=== PATIENT | female | born 1970 | race African-American/Black ===

== ENCOUNTER 2018-04-19 01:17 | Emergency (ER) | payer MEDICAID ==
[~2018-04-19] VITALS: Ht 167.6 cm; Wt 74.0 kg
[2018-04-19] MEDS ORDERED: ALBUTEROL (0.5%) 2.5MG/0.5ML NEB HHN ONE (09:30)
[2018-04-19] MEDS ORDERED: METHYLPREDNISOLONE SOD SUCC 125 MG/2 ML VIAL IV ONE (09:30)
[2018-04-19 11:42] VITALS: BP 136/69
== END 2018-04-19 12:27 | disposition home or self-care (01) ==
LOC: ER 01:17
DX: J40 Bronchitis, not specified as acute or chronic (principal); I10 Essential (primary) hypertension; B20 Human immunodeficiency virus [HIV] disease; Z87.01 Personal history of pneumonia (recurrent)
CPT/HCPCS: 71045; 94640; 96374; 99283; J2930; J7611

== ENCOUNTER 2018-11-27 14:35 | Inpatient (IN) | payer MEDICAID ==
[~2018-11-27] VITALS: Ht 167.6 cm; Wt 84.9 kg
[2018-11-27] MEDS ORDERED: NITROGLYCERIN OINT 1GM/INCH UDPKT TD ONE (15:15)
[2018-11-27] MEDS ORDERED: ASPIRIN 81MG TABLET PO ONE (15:15)
[2018-11-27] MEDS ORDERED: FUROSEMIDE 40MG/4ML VIAL IV ONE (15:15)
[2018-11-27] MEDS ORDERED: HYDRALAZINE 20MG/ML VIAL IV ONE (15:45)
[2018-11-27 16:52] LABS: BASOPHILS % 0.5 % (0.0-2.0); EOSINOPHILS % 1.9 % (0.0-5.0); HEMATOCRIT. 36.3 % (36.0-48.0); HEMOGLOBIN. 11.8 g/dL (12.0-16.0); LYMPHOCYTES % 7.4 % (20.0-50.0); MEAN CORPUSCULAR HEMOGLOBIN 27.4 pg (28.0-32.0); MEAN PLATELET VOLUME 8.7 fl (7.4-10.4); MONOCYTES % 6.4 % (2.0-8.0); NEUTROPHILS % 83.8 % (40.0-76.0); PLATELET 165 x1000/uL (130-400); RED BLOOD CELL COUNT 4.32 mill/uL (4.2-5.4); RED CELL DISTRIBUTION WIDTH 16.6 % (11.6-14.6)
[2018-11-27 16:55] LABS: CHLORIDE 109 mEq/L (98-107)
[2018-11-27 17:09] LABS: HCG SCREEN NEGATIVE
[2018-11-27 17:24] LABS: INR 1.3; PARTIAL THROMBOPLASTIN TIME 29.3 sec (23.4-31.0); PROTHROMBIN TIME 13.5 sec (9.6-11.0)
[2018-11-27 17:44] LABS: CLARITY URINE CLEAR (CLEAR); COLOR URINE YELLOW (YELLOW); KETONES URINE NEGATIVE (NEGATIVE); LEUKOCYTE ESTERASE URINE NEGATIVE (NEGATIVE); NITRITE URINE NEGATIVE (NEGATIVE); OCCULT BLOOD URINE 2+ (NEGATIVE); PROTEIN URINE NEGATIVE (NEGATIVE); SPECIFIC GRAVITY URINE 1.006 (1.005-1.030); UROBILINOGEN URINE 0.2 E.U./dL (0.2-1.0)
[2018-11-27] MEDS ORDERED: IOHEXOL-350 100 ML BOTTLE ONE (23:24)
[2018-11-28 01:00] VITALS: BP 129/87
[2018-11-28 04:00] VITALS: BP 112/54
[2018-11-28] MEDS ORDERED: ONDANSETRON HCL 4MG/2ML INJ IV PRN (05:15)
[2018-11-28] MEDS ORDERED: CLONIDINE 0.1MG TABLET PO PRN (05:15)
[2018-11-28] MEDS ORDERED: HYDROCODONE/ACETAMINOPHEN 5/325MG TABLET PO PRN (05:15)
[2018-11-28 07:48] LABS: *AMPHETAMINES SCREEN URINE NEGATIVE (NEGATIVE); *BARBITURATES SCREEN URINE NEGATIVE (NEGATIVE); *BENZODIAZEPINES SCREEN URINE NEGATIVE (NEGATIVE); *COCAINE SCREEN URINE NEGATIVE (NEGATIVE); METHADONE URINE SCREEN NEGATIVE (NEGATIVE)
[2018-11-28 07:49] LABS: CANNABINOID URINE SCREEN NEGATIVE (NEGATIVE); PHENCYCLIDINE URINE SCREEN NEGATIVE (NEGATIVE)
[2018-11-28 08:00] VITALS: BP 113/75
[2018-11-28 08:12] LABS: OPIATES URINE SCREEN PRESUMTIVE POSITIVE (NEGATIVE)
[2018-11-28] MEDS: FUROSEMIDE 40MG/4ML VIAL IVP SCH ×2 (10:12→17:59)
[2018-11-28 10:41] LABS: BASOPHILS % 0.7 % (0.0-2.0); EOSINOPHILS % 1.8 % (0.0-5.0); HEMATOCRIT. 36.2 % (36.0-48.0); HEMOGLOBIN. 11.6 g/dL (12.0-16.0); LYMPHOCYTES % 15.9 % (20.0-50.0); MEAN CORPUSCULAR HEMOGLOBIN 26.9 pg (28.0-32.0); MEAN CORPUSCULAR VOLUME 84.1 fL (81.0-99.0); MEAN PLATELET VOLUME 8.7 fl (7.4-10.4); MONOCYTES % 13.5 % (2.0-8.0); NEUTROPHILS % 68.1 % (40.0-76.0); PLATELET 160 x1000/uL (130-400); RED CELL DISTRIBUTION WIDTH 17.4 % (11.6-14.6)
[2018-11-28 10:44] LABS: CHLORIDE 106 mEq/L (98-107)
[2018-11-28 10:57] LABS: LDL CHOLESTEROL 43 mg/dL (5-100)
[2018-11-28 10:59] LABS: HDL CHOLESTEROL 17 mg/dL (40-59)
[2018-11-28 12:00] VITALS: BP 113/79
[2018-11-28 16:00] VITALS: BP 121/80
[2018-11-28] MEDS ORDERED: MAGNESIUM 2 G PREMIX 50 ML IV NR (18:00)
[2018-11-28 20:00] VITALS: BP 124/70
[2018-11-28] MEDS: CARVEDILOL 3.125 MG TABLET PO SCH (22:15)
[2018-11-28] MEDS: GUAIFENESIN 200MG/10ML SUGAR FREE UDC PO PRN (23:45)
[2018-11-28] MEDS: ACETAMINOPHEN 325MG TABLET PO PRN (23:48)
[2018-11-29] VITALS: BP 116/82
[2018-11-29 03:38] VITALS: BP 113/77
[2018-11-29 07:15] LABS: CHLORIDE 104 mEq/L (98-107)
[2018-11-29 07:27] LABS: HEMATOCRIT. 33.5 % (36.0-48.0); HEMOGLOBIN. 10.9 g/dL (12.0-16.0); MEAN CORPUSCULAR HEMOGLOBIN 27.6 pg (28.0-32.0); MEAN CORPUSCULAR VOLUME 84.2 fL (81.0-99.0); MEAN PLATELET VOLUME 8.6 fl (7.4-10.4); PLATELET 144 x1000/uL (130-400); RED BLOOD CELL COUNT 3.97 mill/uL (4.2-5.4); RED CELL DISTRIBUTION WIDTH 16.9 % (11.6-14.6)
[2018-11-29 07:37] LABS: HEPATITIS B SURFACE ANTIGEN NEGATIVE
[2018-11-29 08:00] VITALS: BP 125/84
[2018-11-29 08:07] LABS: HEPATITIS A AB IGM NEGATIVE (NEGATIVE)
[2018-11-29] MEDS ORDERED: ENOXAPARIN 40MG/0.4ML SYR SUBCUT SCH (09:00)
[2018-11-29] MEDS: LISINOPRIL 2.5MG TABLET PO SCH (09:00)
[2018-11-29] MEDS: CARVEDILOL 3.125 MG TABLET PO SCH ×2 (09:00→21:23)
[2018-11-29] MEDS: FUROSEMIDE 40MG/4ML VIAL IVP SCH ×2 (09:58→18:54)
[2018-11-29 11:45] LABS: PLATELET ESTIMATE NORMAL
[2018-11-29 12:00] VITALS: BP 105/65
[2018-11-29] MEDS: ENOXAPARIN 40MG/0.4ML SYR SUBCUT SCH (13:00)
[2018-11-29 16:00] VITALS: BP 134/86
[2018-11-29 20:00] VITALS: BP 121/63
[2018-11-29] MEDS: DOCUSATE SODIUM 250MG CAPSULE PO PRN (21:24)
[2018-11-29] MEDS: ACETAMINOPHEN 325MG TABLET PO PRN (21:24)
[2018-11-29] MEDS: GUAIFENESIN 200MG/10ML SUGAR FREE UDC PO PRN (21:28)
[2018-11-29] MEDS ORDERED: CARV6.2548 PO (22:07)
[2018-11-29] MEDS ORDERED: FAMO40TA7 PO (22:07)
[2018-11-29] MEDS ORDERED: AMOX500T2 PO (22:07)
[2018-11-29] MEDS ORDERED: MULT-1116 PO (22:07)
[2018-11-29] MEDS ORDERED: POTA10CA42 PO (22:07)
[2018-11-29] MEDS ORDERED: ASPI-1158 PO (22:07)
[2018-11-30] VITALS: BP 110/69
[2018-11-30 04:00] VITALS: BP 119/81
[2018-11-30 06:44] LABS: HEMATOCRIT. 34.4 % (36.0-48.0); HEMOGLOBIN. 11.1 g/dL (12.0-16.0); MEAN CORPUSCULAR HEMOGLOBIN 27.1 pg (28.0-32.0); MEAN PLATELET VOLUME 8.9 fl (7.4-10.4); PLATELET 159 x1000/uL (130-400); RED BLOOD CELL COUNT 4.09 mill/uL (4.2-5.4)
[2018-11-30 07:53] LABS: CHLORIDE 100 mEq/L (98-107)
[2018-11-30 08:00] VITALS: BP 113/77
[2018-11-30] MEDS: LISINOPRIL 2.5MG TABLET PO SCH ×2 (09:00→14:34)
[2018-11-30] MEDS: DOCUSATE SODIUM 250MG CAPSULE PO PRN (09:29)
[2018-11-30] MEDS: CARVEDILOL 3.125 MG TABLET PO SCH ×2 (09:29→21:20)
[2018-11-30] MEDS: FUROSEMIDE 40MG/4ML VIAL IVP SCH ×2 (09:29→18:41)
[2018-11-30] MEDS: ENOXAPARIN 40MG/0.4ML SYR SUBCUT SCH (09:31)
[2018-11-30 12:00] VITALS: BP 110/70
[2018-11-30 14:10] LABS: PLATELET ESTIMATE NORMAL
[2018-11-30] MEDS: GUAIFENESIN 200MG/10ML SUGAR FREE UDC PO PRN ×2 (14:36→21:26)
[2018-11-30] MEDS ORDERED: MAGNESIUM 1 G PREMIX 100 ML IV SCH (15:00)
[2018-11-30 16:00] VITALS: BP 118/69
[2018-11-30 20:00] VITALS: BP 110/65
[2018-11-30] MEDS: ACETAMINOPHEN 325MG TABLET PO PRN (21:21)
[2018-12-01] VITALS: BP 109/71
[2018-12-01 04:00] VITALS: BP 101/55
[2018-12-01 07:14] LABS: HEMATOCRIT. 35.5 % (36.0-48.0); HEMOGLOBIN. 11.6 g/dL (12.0-16.0); MEAN CORPUSCULAR HEMOGLOBIN 27.1 pg (28.0-32.0); MEAN CORPUSCULAR VOLUME 83.1 fL (81.0-99.0); MEAN PLATELET VOLUME 8.7 fl (7.4-10.4); PLATELET 173 x1000/uL (130-400); RED BLOOD CELL COUNT 4.26 mill/uL (4.2-5.4); RED CELL DISTRIBUTION WIDTH 17.1 % (11.6-14.6)
[2018-12-01 08:00] VITALS: BP 103/68
[2018-12-01] MEDS: LISINOPRIL 2.5MG TABLET PO SCH (09:00)
[2018-12-01] MEDS: CARVEDILOL 3.125 MG TABLET PO SCH (09:00)
[2018-12-01] MEDS: FUROSEMIDE 40MG/4ML VIAL IVP SCH (09:15)
[2018-12-01] MEDS: ENOXAPARIN 40MG/0.4ML SYR SUBCUT SCH (09:16)
[2018-12-01 09:35] LABS: CHLORIDE 101 mEq/L (98-107)
[2018-12-01 09:36] LABS: PLATELET ESTIMATE NORMAL
[2018-12-01 12:00] VITALS: BP 108/69
[2018-12-01] MEDS ORDERED: FURO40TA5 MT (12:38)
[2018-12-01] MEDS ORDERED: LISI2.5T47 MT (12:38)
[2018-12-01 18:00] VITALS: BP 123/81
== END 2018-12-01 19:00 | disposition home or self-care (01) | DRG 194 ==
LOC: ER 14:35 → 6WST 18:45 → ENRESERV 22:55
PROVIDERS: ADMIT Internal Medicine; ATTEND Internal Medicine
DX: I11.0 Hypertensive heart disease with heart failure (principal); D72.1 Eosinophilia; E83.42 Hypomagnesemia; E88.09 Other disorders of plasma-protein metabolism, not elsewhere classified; D72.0 Genetic anomalies of leukocytes; R18.8 Other ascites; I50.43 Acute on chronic combined systolic (congestive) and diastolic (congestive) heart failure; I07.1 Rheumatic tricuspid insufficiency; K76.9 Liver disease, unspecified; D63.8 Anemia in other chronic diseases classified elsewhere; I25.2 Old myocardial infarction; Z82.49 Family history of ischemic heart disease and other diseases of the circulatory system; R74.0 Nonspecific elevation of levels of transaminase and lactic acid dehydrogenase [LDH]; I34.0 Nonrheumatic mitral (valve) insufficiency
CPT/HCPCS: 36415; 71045; 71275; 74176; 76700; 80048; 80061; 80076; 80305; 81003; 82105; 82248; 83735; 83880; 84443; 84484; 84703; 85379; 86705; 86709; 86803; 87077; 87340; 87804; 93005; 93306; 93970; 99285; J0360; J1650; J1940; J3475; Q9967

== ENCOUNTER 2019-01-16 22:25 | Inpatient (IN) | payer MEDICAID ==
[~2019-01-16] VITALS: Ht 167.6 cm; Wt 77.6 kg
[~2019-01-16 22:25] MED LIST: ASPI-1158 PO; CARV6.2548 PO; FAMO40TA7 PO; FURO40TA5 MT; LISI2.5T47 MT; MULT-1116 PO; POTA10CA42 PO
[2019-01-17] VITALS (7 sets, daily range): BP systolic 91–134; BP diastolic 44–77
[2019-01-17 06:18] LABS: BASOPHILS % 0.9 % (0.0-2.0); EOSINOPHILS % 9.1 % (0.0-5.0); HEMATOCRIT. 42.5 % (36.0-48.0); HEMOGLOBIN. 13.7 g/dL (12.0-16.0); LYMPHOCYTES % 22.8 % (20.0-50.0); MEAN CORPUSCULAR HEMOGLOBIN 26.9 pg (28.0-32.0); MEAN CORPUSCULAR VOLUME 83.7 fL (81.0-99.0); MEAN PLATELET VOLUME 8.9 fl (7.4-10.4); MONOCYTES % 12.5 % (2.0-8.0); NEUTROPHILS % 54.7 % (40.0-76.0); PLATELET 247 x1000/uL (130-400); RED BLOOD CELL COUNT 5.08 mill/uL (4.2-5.4); RED CELL DISTRIBUTION WIDTH 17.8 % (11.6-14.6)
[2019-01-17 06:21] LABS: CHLORIDE 102 mEq/L (98-107)
[2019-01-17 06:22] LABS: INR 1.3; PROTHROMBIN TIME 13.7 sec (9.6-11.0)
[2019-01-17] MEDS: HEPARIN 5000 UNITS/ML VIAL SUBCUT SCH ×2 (08:10→21:20)
[2019-01-17] MEDS: MULTIVITAMINS,THER W-MINERALS TABLET PO SCH (08:15)
[2019-01-17] MEDS: FUROSEMIDE 40MG/4ML VIAL IVP SCH (08:15)
[2019-01-17] MEDS: LISINOPRIL 2.5MG TABLET PO SCH (08:16)
[2019-01-17] MEDS: CARVEDILOL 6.25 MG TABLET PO SCH ×2 (08:16→21:20)
[2019-01-17] MEDS: SPIRONOLACTONE 25MG TABLET PO SCH (08:17)
[2019-01-17] MEDS: POTASSIUM CHLORIDE 10MEQ TABLET SR PO SCH (08:17)
[2019-01-17] MEDS: OMEPRAZOLE 20MG CAPSULE EXTENDED RELEASE PO SCH (15:03)
[2019-01-17] MEDS ORDERED: INFLUENZA VIRUS VACCINE(AFLURIA) 0.5ML SYR IM ONE (19:00)
[2019-01-17] MEDS ORDERED: FAMOTIDINE 20MG TABLET PO SCH (21:00)
[2019-01-17] MEDS: ATORVASTATIN CALCIUM 20MG TABLET PO SCH (21:19)
[2019-01-17] MEDS: HYDROCODONE/ACETAMINOPHEN 5/325MG TABLET PO PRN (21:22)
[2019-01-18] VITALS: BP 110/61
[2019-01-18 04:00] VITALS: BP 117/65
[2019-01-18] MEDS: OMEPRAZOLE 20MG CAPSULE EXTENDED RELEASE PO SCH (06:22)
[2019-01-18 08:00] VITALS: BP 102/60
[2019-01-18] MEDS: LISINOPRIL 2.5MG TABLET PO SCH (09:00)
[2019-01-18] MEDS: MULTIVITAMINS,THER W-MINERALS TABLET PO SCH (09:51)
[2019-01-18] MEDS: POTASSIUM CHLORIDE 10MEQ TABLET SR PO SCH (09:51)
[2019-01-18] MEDS: HEPARIN 5000 UNITS/ML VIAL SUBCUT SCH ×2 (09:52→20:15)
[2019-01-18] MEDS: FUROSEMIDE 40MG/4ML VIAL IVP SCH (09:52)
[2019-01-18 10:07] LABS: BASOPHILS % 0.9 % (0.0-2.0); EOSINOPHILS % 9.9 % (0.0-5.0); HEMATOCRIT. 45.4 % (36.0-48.0); HEMOGLOBIN. 14.5 g/dL (12.0-16.0); LYMPHOCYTES % 22.6 % (20.0-50.0); MEAN CORPUSCULAR HEMOGLOBIN 26.9 pg (28.0-32.0); MEAN PLATELET VOLUME 8.8 fl (7.4-10.4); MONOCYTES % 8.6 % (2.0-8.0); PLATELET 264 x1000/uL (130-400); RED CELL DISTRIBUTION WIDTH 17.9 % (11.6-14.6)
[2019-01-18 10:13] LABS: CHLORIDE 102 mEq/L (98-107)
[2019-01-18] MEDS: SPIRONOLACTONE 25MG TABLET PO SCH (10:29)
[2019-01-18 12:00] VITALS: BP 115/76
[2019-01-18] MEDS: CARVEDILOL 6.25 MG TABLET PO SCH (13:44)
[2019-01-18 16:00] VITALS: BP 104/64
[2019-01-18 20:00] VITALS: BP 107/70
[2019-01-18] MEDS: ATORVASTATIN CALCIUM 20MG TABLET PO SCH (20:15)
[2019-01-18] MEDS: CARVEDILOL 12.5MG TABLET PO SCH (20:16)
[2019-01-18] MEDS: HYDROCODONE/ACETAMINOPHEN 5/325MG TABLET PO PRN (20:16)
[2019-01-18] MEDS: FAMOTIDINE 20MG TABLET PO SCH (20:16)
[2019-01-18] MEDS ORDERED: BICT1TAB PO (22:00)
[2019-01-18] MEDS ORDERED: LISI-604 PO (22:00)
[2019-01-18] MEDS ORDERED: ALBU2.5V13 NEB (22:02)
[2019-01-19] VITALS: BP 98/56
[2019-01-19 04:00] VITALS: BP 103/72
[2019-01-19] MEDS: FAMOTIDINE 20MG TABLET PO SCH ×2 (06:26→21:00)
[2019-01-19 07:08] LABS: BASOPHILS % 0.9 % (0.0-2.0); EOSINOPHILS % 10.7 % (0.0-5.0); HEMATOCRIT. 41.8 % (36.0-48.0); HEMOGLOBIN. 13.5 g/dL (12.0-16.0); LYMPHOCYTES % 25.8 % (20.0-50.0); MEAN CORPUSCULAR VOLUME 83.5 fL (81.0-99.0); MEAN PLATELET VOLUME 8.7 fl (7.4-10.4); MONOCYTES % 12.2 % (2.0-8.0); NEUTROPHILS % 50.4 % (40.0-76.0); PLATELET 232 x1000/uL (130-400); RED BLOOD CELL COUNT 5.01 mill/uL (4.2-5.4); RED CELL DISTRIBUTION WIDTH 17.9 % (11.6-14.6)
[2019-01-19 08:02] VITALS: BP 112/70
[2019-01-19 08:04] LABS: CHLORIDE 104 mEq/L (98-107)
[2019-01-19] MEDS: HEPARIN 5000 UNITS/ML VIAL SUBCUT SCH ×2 (08:56→20:59)
[2019-01-19] MEDS: SPIRONOLACTONE 25MG TABLET PO SCH (08:56)
[2019-01-19] MEDS: POTASSIUM CHLORIDE 10MEQ TABLET SR PO SCH (08:56)
[2019-01-19] MEDS: MULTIVITAMINS,THER W-MINERALS TABLET PO SCH (08:56)
[2019-01-19] MEDS: FUROSEMIDE 40MG/4ML VIAL IVP SCH (08:57)
[2019-01-19] MEDS: CARVEDILOL 12.5MG TABLET PO SCH ×2 (08:57→21:00)
[2019-01-19] MEDS: LISINOPRIL 5MG TABLET PO SCH (09:27)
[2019-01-19 12:30] VITALS: BP 91/55
[2019-01-19] MEDS: BIKTARVY PO SCH (13:41)
[2019-01-19 16:30] VITALS: BP 95/50
[2019-01-19 20:00] VITALS: BP 94/51
[2019-01-19] MEDS: ATORVASTATIN CALCIUM 20MG TABLET PO SCH (21:00)
[2019-01-20] VITALS (8 sets, daily range): BP systolic 92–152; BP diastolic 57–76
[2019-01-20 06:15] LABS: BASOPHILS % 0.9 % (0.0-2.0); EOSINOPHILS % 10.8 % (0.0-5.0); HEMATOCRIT. 41.3 % (36.0-48.0); HEMOGLOBIN. 13.2 g/dL (12.0-16.0); LYMPHOCYTES % 28.8 % (20.0-50.0); MEAN CORPUSCULAR HEMOGLOBIN 26.7 pg (28.0-32.0); MEAN CORPUSCULAR VOLUME 83.6 fL (81.0-99.0); MEAN PLATELET VOLUME 8.7 fl (7.4-10.4); MONOCYTES % 12.4 % (2.0-8.0); NEUTROPHILS % 47.1 % (40.0-76.0); PLATELET 217 x1000/uL (130-400); RED BLOOD CELL COUNT 4.94 mill/uL (4.2-5.4)
[2019-01-20 06:30] LABS: CHLORIDE 103 mEq/L (98-107)
[2019-01-20] MEDS: FAMOTIDINE 20MG TABLET PO SCH ×2 (06:32→20:56)
[2019-01-20] MEDS: CARVEDILOL 12.5MG TABLET PO SCH ×2 (10:19→20:56)
[2019-01-20] MEDS: FUROSEMIDE 40MG/4ML VIAL IVP SCH (10:19)
[2019-01-20] MEDS: POTASSIUM CHLORIDE 10MEQ TABLET SR PO SCH (10:19)
[2019-01-20] MEDS: SPIRONOLACTONE 25MG TABLET PO SCH (10:20)
[2019-01-20] MEDS: MULTIVITAMINS,THER W-MINERALS TABLET PO SCH (10:20)
[2019-01-20] MEDS: HEPARIN 5000 UNITS/ML VIAL SUBCUT SCH ×2 (10:26→20:56)
[2019-01-20] MEDS: BIKTARVY PO SCH (10:31)
[2019-01-20] MEDS ORDERED: ISOS60TA4 PO (11:20)
[2019-01-20] MEDS ORDERED: IRBE300T17 MT (11:20)
[2019-01-20] MEDS: LISINOPRIL 5MG TABLET PO SCH (11:59)
[2019-01-20] MEDS: ATORVASTATIN CALCIUM 20MG TABLET PO SCH (20:56)
[2019-01-20] MEDS ORDERED: AZITHROMYCIN 600 MG TABLET PO SCH (21:00)
[2019-01-21] VITALS: BP 108/57
[2019-01-21] MEDS: HYDROCODONE/ACETAMINOPHEN 5/325MG TABLET PO PRN (01:39)
[2019-01-21 04:00] VITALS: BP 102/64
[2019-01-21] MEDS: FAMOTIDINE 20MG TABLET PO SCH ×2 (06:20→21:27)
[2019-01-21 08:00] VITALS: BP 108/72
[2019-01-21] MEDS: POTASSIUM CHLORIDE 10MEQ TABLET SR PO SCH (08:14)
[2019-01-21] MEDS: SULFAMETHOXAZOLE/TRIMETHOPRIM 800/160MG TABLET PO SCH (08:14)
[2019-01-21] MEDS: MULTIVITAMINS,THER W-MINERALS TABLET PO SCH (08:14)
[2019-01-21] MEDS: SPIRONOLACTONE 25MG TABLET PO SCH (08:15)
[2019-01-21] MEDS: LISINOPRIL 5MG TABLET PO SCH (08:15)
[2019-01-21] MEDS: FUROSEMIDE 40MG/4ML VIAL IVP SCH (08:15)
[2019-01-21] MEDS: CARVEDILOL 12.5MG TABLET PO SCH ×2 (08:15→21:00)
[2019-01-21] MEDS: BIKTARVY PO SCH (08:17)
[2019-01-21] MEDS: HEPARIN 5000 UNITS/ML VIAL SUBCUT SCH ×2 (09:00→21:28)
[2019-01-21] MEDS ORDERED: MAGNESIUM/ALUMINUM HYDROXIDE/SIMETHICONE 30ML UDC PO PRN (10:45)
[2019-01-21 11:06] LABS: CHLORIDE 101 mEq/L (98-107)
[2019-01-21 11:07] LABS: EOSINOPHILS % 13.8 % (0.0-5.0); HEMATOCRIT. 42.2 % (36.0-48.0); HEMOGLOBIN. 13.6 g/dL (12.0-16.0); LYMPHOCYTES % 30.3 % (20.0-50.0); MEAN CORPUSCULAR VOLUME 83.6 fL (81.0-99.0); MEAN PLATELET VOLUME 8.8 fl (7.4-10.4); MONOCYTES % 14.9 % (2.0-8.0); PLATELET 212 x1000/uL (130-400); RED BLOOD CELL COUNT 5.05 mill/uL (4.2-5.4); RED CELL DISTRIBUTION WIDTH 17.6 % (11.6-14.6)
[2019-01-21 11:38] VITALS: BP 113/76
[2019-01-21 16:00] VITALS: BP 106/61
[2019-01-21 20:00] VITALS: BP 109/67
[2019-01-21] MEDS: ATORVASTATIN CALCIUM 20MG TABLET PO SCH (21:26)
[2019-01-22] VITALS: BP 108/64
[2019-01-22 04:00] VITALS: BP 102/65
[2019-01-22] MEDS: FAMOTIDINE 20MG TABLET PO SCH ×2 (06:44→21:46)
[2019-01-22 07:41] LABS: HEMATOCRIT. 38.4 % (36.0-48.0); HEMOGLOBIN. 12.7 g/dL (12.0-16.0); MEAN CORPUSCULAR HEMOGLOBIN 27.3 pg (28.0-32.0); MEAN CORPUSCULAR VOLUME 82.6 fL (81.0-99.0); MEAN PLATELET VOLUME 8.8 fl (7.4-10.4); PLATELET 188 x1000/uL (130-400); RED BLOOD CELL COUNT 4.65 mill/uL (4.2-5.4); RED CELL DISTRIBUTION WIDTH 17.3 % (11.6-14.6)
[2019-01-22 08:21] LABS: CHLORIDE 107 mEq/L (98-107)
[2019-01-22 08:37] VITALS: BP 106/61
[2019-01-22] MEDS: SULFAMETHOXAZOLE/TRIMETHOPRIM 800/160MG TABLET PO SCH (09:00)
[2019-01-22] MEDS: FUROSEMIDE 40MG/4ML VIAL IVP SCH (09:00)
[2019-01-22] MEDS: POTASSIUM CHLORIDE 10MEQ TABLET SR PO SCH (09:00)
[2019-01-22] MEDS: SPIRONOLACTONE 25MG TABLET PO SCH (09:00)
[2019-01-22] MEDS: BIKTARVY PO SCH (09:00)
[2019-01-22] MEDS: LISINOPRIL 5MG TABLET PO SCH (09:00)
[2019-01-22] MEDS: CARVEDILOL 12.5MG TABLET PO SCH ×2 (09:00→21:51)
[2019-01-22] MEDS: MULTIVITAMINS,THER W-MINERALS TABLET PO SCH (09:00)
[2019-01-22] MEDS ORDERED: TETRACAINE/BENZOCAINE/BUTAMBEN 20 GM SPRAY MM ONE (09:39)
[2019-01-22] MEDS ORDERED: LIDOCAINE HCL 2% JELLY 5ML ONE (09:39)
[2019-01-22] MEDS ORDERED: MIDAZOLAM HCL 2 MG/2 ML VIAL ONE (09:51)
[2019-01-22] MEDS ORDERED: FENTANYL CITRATE/PF 50MCG/ML 2ML VIAL ONE (09:51)
[2019-01-22 11:10] LABS: PLATELET ESTIMATE NORMAL
[2019-01-22] MEDS ORDERED: NITROGLYCERIN 50MCG/ML 10ML VIAL (CATH LAB) IV SCH (11:30)
[2019-01-22] MEDS ORDERED: NITROGLYCERIN SPRAY/4.9GM CAN TL SCH (11:30)
[2019-01-22 12:00] VITALS: BP 119/76
[2019-01-22] MEDS ORDERED: METOPROLOL TARTRATE 5MG/5ML VIAL IV NR (12:00)
[2019-01-22] MEDS ORDERED: METOPROLOL TARTRATE 5MG/5ML VIAL IV ONE (13:14)
[2019-01-22] MEDS ORDERED: IOHEXOL-350 100 ML BOTTLE ONE (15:21)
[2019-01-22 16:11] VITALS: BP 118/88
[2019-01-22 20:30] VITALS: BP 111/72
[2019-01-22] MEDS: ATORVASTATIN CALCIUM 20MG TABLET PO SCH (21:46)
[2019-01-22] MEDS: HEPARIN 5000 UNITS/ML VIAL SUBCUT SCH (22:22)
[2019-01-22] MEDS: HYDROCODONE/ACETAMINOPHEN 5/325MG TABLET PO PRN (22:25)
[2019-01-23] VITALS (7 sets, daily range): BP systolic 80–110; BP diastolic 50–72
[2019-01-23] MEDS ORDERED: CHLORHEXIDINE GLUCONATE 4% EXTERNAL USE TOP SCH ×2 (05:30→21:00)
[2019-01-23 07:53] LABS: % CD 3 POS. LYMPHOCYTES 58.5 % (57.5-86.2); % CD 4 POS. LYMPHOCYTES 13.8 % (30.8-58.5); ABSOLUTE CD 3 936 /uL (622-2402); ABSOLUTE CD 4 HELPER 221 /uL (359-1519); ABSOLUTE CD 8 SUPPRESSOR 704 /uL (109-897); ABSOLUTE EOSINOPHILS 0.6 x10E3/uL (0.0-0.4); ABSOLUTE LYMPHOCYTES 1.6 x10E3/uL (0.7-3.1); ABSOLUTE MONOCYTES 0.8 x10E3/uL (0.1-0.9); ABSOLUTE NEUTROPHILS 3.8 x10E3/uL (1.4-7.0); BASOPHILS 0 % (Not Estab.); CD4/CD8 RATIO 0.31 (0.92-3.72); HEMOGLOBIN 14.1 g/dL (11.1-15.9); IMMATURE GRANULOCYTES 0 % (Not Estab.); LYMPHOCYTES 23 % (Not Estab.); MEAN CORPUSCULAR HEMOGLOBIN 26.4 pg (26.6-33.0); MEAN CORPUSCULAR VOLUME 88 fL (79-97); MONOCYTES 12 % (Not Estab.); NEUTROPHILS 56 % (Not Estab.); PLATELETS 301 x10E3/uL (150-450); RBC 5.34 x10E6/uL (3.77-5.28); WBC 6.9 x10E3/uL (3.4-10.8)
[2019-01-23] MEDS: SULFAMETHOXAZOLE/TRIMETHOPRIM 800/160MG TABLET PO SCH (08:52)
[2019-01-23] MEDS: MULTIVITAMINS,THER W-MINERALS TABLET PO SCH (08:52)
[2019-01-23] MEDS: LISINOPRIL 5MG TABLET PO SCH (08:53)
[2019-01-23] MEDS: FAMOTIDINE 20MG TABLET PO SCH (08:54)
[2019-01-23] MEDS: SPIRONOLACTONE 25MG TABLET PO SCH (08:55)
[2019-01-23] MEDS: CARVEDILOL 12.5MG TABLET PO SCH ×2 (08:55→21:04)
[2019-01-23] MEDS: POTASSIUM CHLORIDE 10MEQ TABLET SR PO SCH (08:55)
[2019-01-23] MEDS: FUROSEMIDE 40MG/4ML VIAL IVP SCH (08:56)
[2019-01-23] MEDS: HEPARIN 5000 UNITS/ML VIAL SUBCUT SCH ×2 (08:56→21:04)
[2019-01-23] MEDS: BIKTARVY PO SCH (08:57)
[2019-01-23 15:06] LABS: CHLORIDE 104 mEq/L (98-107)
[2019-01-23] MEDS ORDERED: ACETAMINOPHEN 325MG TABLET PO PRN (16:15)
[2019-01-23] MEDS: ATORVASTATIN CALCIUM 20MG TABLET PO SCH (20:51)
[2019-01-23] MEDS: ALLOPURINOL 300 MG TABLET PO SCH (20:52)
[2019-01-23] MEDS ORDERED: BISACODYL 10MG SUPP PR PRN (21:00)
[2019-01-23] MEDS ORDERED: DOCUSATE SODIUM 100MG CAPSULE PO SCH (21:00)
[2019-01-23] MEDS ORDERED: ASCORBIC ACID 500 MG TABLET PO SCH (21:00)
[2019-01-23] MEDS ORDERED: OMEPRAZOLE 20MG CAPSULE EXTENDED RELEASE PO SCH (21:14)
[2019-01-23] MEDS: SODIUM CHLORIDE 0.9% INJ 3ML FLUSH IVF SCH (22:20)
[2019-01-23] MEDS ORDERED: NOREPINEPHRINE 4 MG in DEXT 5% WATER 246 ML IV ONE (23:15)
[2019-01-24] VITALS (42 sets, daily range): BP systolic 81–159; BP diastolic 16–73
[2019-01-24] MEDS ORDERED: CEFAZOLIN 2,000 MG in DEXT 5% WATER 100 ML IV PRN (05:00)
[2019-01-24] MEDS ORDERED: DEL NIDO ELECTROLYTE-S(PH 7.4) 1,000 ML IV PRN ×2 (05:00)
[2019-01-24] MEDS ORDERED: BLOOD SUGAR DIAGNOSTIC STRIP TEST ONE (05:00)
[2019-01-24] MEDS: CHLORHEXIDINE GLUCONATE 4% EXTERNAL USE TOP SCH ×2 (05:17→09:00)
[2019-01-24] MEDS: SODIUM CHLORIDE 0.9% INJ 3ML FLUSH IVF SCH (05:17)
[2019-01-24] MEDS: ALLOPURINOL 300 MG TABLET PO SCH (05:18)
[2019-01-24] MEDS ORDERED: NICARDIPINE 40MG/200ML PREMIX 200 ML IV PRN (06:00)
[2019-01-24] MEDS ORDERED: AMINOCAPROIC ACID 10,000 MG in SODIUM CHLORIDE 0.9% 460 ML IV PRN (06:00)
[2019-01-24] MEDS ORDERED: DOBUTAMINE 250MG PREMIX 250 ML IV PRN (06:00)
[2019-01-24] MEDS ORDERED: EPINEPHRINE 4 MG in DEXT 5% WATER 246 ML IV PRN (06:00)
[2019-01-24] MEDS ORDERED: PHENYLEPHRINE 10 MG in DEXT 5% WATER 249 ML IV PRN (06:00)
[2019-01-24] MEDS ORDERED: INSULIN REGULAR (DRIP) 100 UNITS in SODIUM CHLORIDE 0.9% 99 ML IV PRN (06:00)
[2019-01-24] MEDS ORDERED: DOPAMINE 400MG/250ML PREMIX 250 ML IV ONE (06:20)
[2019-01-24] MEDS ORDERED: NORMAL SALINE 0.9% 10 ML SYR ONE (06:21)
[2019-01-24] MEDS ORDERED: BACITRACIN 50,000 UNITS/VIAL ONE (06:21)
[2019-01-24] MEDS ORDERED: THROMBIN (BOVINE) 5000 UNITS/VIAL TOP ONE ×2 (06:21→08:48)
[2019-01-24] MEDS ORDERED: HEPARIN 1000 UNITS/ML 10ML ONE ×4 (06:24→08:55)
[2019-01-24] MEDS ORDERED: FENTANYL CITRATE/PF 50MCG/ML 5ML VIAL ONE (06:47)
[2019-01-24] MEDS ORDERED: MIDAZOLAM HCL 2 MG/2 ML VIAL ONE (06:47)
[2019-01-24] MEDS ORDERED: ETOMIDATE 2MG/ML 10ML VIAL IV ONE (06:47)
[2019-01-24] MEDS ORDERED: PROPOFOL 10MG/ML 100ML 100 ML IV ONE ×2 (06:48→10:44)
[2019-01-24] MEDS ORDERED: SODIUM CHLORIDE 0.9% 10ML VIAL ONE (06:48)
[2019-01-24] MEDS ORDERED: AMINOCAPROIC ACID 250 MG/ML 20ML VIAL ONE ×2 (06:48→07:21)
[2019-01-24] MEDS ORDERED: ESMOLOL HCL 10MG/ML 10ML VIAL IV ONE (06:55)
[2019-01-24] MEDS ORDERED: ACETAMINOPHEN 500MG TABLET PO NR (07:00)
[2019-01-24] MEDS ORDERED: PHENYLEPHRINE HCL 10 MG/ML 1ML (IV VIAL) IV ONE (07:21)
[2019-01-24] MEDS ORDERED: ALBUMIN HUMAN 25GM/100ML (25%) IV ONE (07:21)
[2019-01-24] MEDS ORDERED: CALCIUM CHLORIDE 1GM/10ML SYR IV ONE ×3 (07:21→13:40)
[2019-01-24] MEDS ORDERED: SODIUM BICARBONATE 8.4% 1 MEQ/ML 50ML SYR IV ONE ×2 (07:22→07:23)
[2019-01-24] MEDS ORDERED: HEPARIN 10,000 UNITS/ML VIAL ONE (07:22)
[2019-01-24] MEDS ORDERED: MANNITOL 20% 500 ML IV ONE (07:22)
[2019-01-24] MEDS ORDERED: MILRINONE 20MG-DEXT 5% PREMIX 100 ML IV ONE (08:02)
[2019-01-24 08:14] LABS: CLARITY URINE CLEAR (CLEAR); COLOR URINE YELLOW (YELLOW); KETONES URINE NEGATIVE (NEGATIVE); LEUKOCYTE ESTERASE URINE NEGATIVE (NEGATIVE); NITRITE URINE NEGATIVE (NEGATIVE); OCCULT BLOOD URINE NEGATIVE (NEGATIVE); PH URINE 5.5 (4.5-8.0); PROTEIN URINE NEGATIVE (NEGATIVE); SPECIFIC GRAVITY URINE 1.017 (1.005-1.030); UROBILINOGEN URINE 0.2 E.U./dL (0.2-1.0)
[2019-01-24] MEDS ORDERED: LABETALOL HCL 5MG/ML VIAL 20ML IV ONE (08:35)
[2019-01-24] MEDS ORDERED: CEFAZOLIN SODIUM 1000MG/VIAL ONE (11:28)
[2019-01-24] MEDS ORDERED: AMIODARONE HCL 50MG/ML 3ML VIAL IV ONE (11:38)
[2019-01-24] MEDS ORDERED: MAGNESIUM SULFATE 5GM/10ML VIAL IV ONE (11:45)
[2019-01-24] MEDS ORDERED: PROTAMINE SULFATE 10MG/ML VIAL 25ML IV ONE ×2 (11:55→18:15)
[2019-01-24] MEDS ORDERED: ONDANSETRON HCL 4MG/2ML INJ ONE (12:36)
[2019-01-24] MEDS ORDERED: METOCLOPRAMIDE HCL 10MG/2ML VIAL ONE (12:36)
[2019-01-24] MEDS ORDERED: HYDROMORPHONE HCL/PF 2MG/ML (OR) ONE (12:37)
[2019-01-24] MEDS ORDERED: SODIUM CHLORIDE 0.9% 500 ML IV PRN (13:02)
[2019-01-24] MEDS ORDERED: ONDANSETRON HCL 4MG/2ML INJ IV PRN (13:15)
[2019-01-24] MEDS ORDERED: ALBUMIN HUMAN 12.5G/250ML (5%) IV PRN (13:15)
[2019-01-24] MEDS ORDERED: EPINEPHRINE 1 MG in DEXT 5% WATER 250 ML IV PRN (13:15)
[2019-01-24 13:33] LABS: HEMATOCRIT. 25.1 % (36.0-48.0); HEMOGLOBIN. 8.2 g/dL (12.0-16.0); MEAN CORPUSCULAR VOLUME 82.9 fL (81.0-99.0); MEAN PLATELET VOLUME 8.1 fl (7.4-10.4); PLATELET 98 x1000/uL (130-400); RED BLOOD CELL COUNT 3.02 mill/uL (4.2-5.4); RED CELL DISTRIBUTION WIDTH 17.3 % (11.6-14.6)
[2019-01-24] MEDS ORDERED: HYDRALAZINE 20MG/ML VIAL ONE (13:35)
[2019-01-24 13:40] LABS: CHLORIDE 106 mEq/L (98-107)
[2019-01-24 13:46] LABS: PHOSPHORUS 3.8 mg/dL (2.5-4.9)
[2019-01-24] MEDS ORDERED: FUROSEMIDE 100MG/10ML VIAL ONE (13:56)
[2019-01-24] MEDS ORDERED: KCL 10MEQ/50ML PREMIX 200 ML IV PRN (14:00)
[2019-01-24 14:28] LABS: BG BASE EXCESS 1.4 mmol/L (-2.0-2.0); BG CARBOXYHEMOGLOBIN 0.4 % (0.5-1.5); BG DEOXYHEMOGLOBIN 1.5 % (0.0-5.0); BG FRACTION INSPIRED OXYGEN 60; BG HCO3 ACT 25.5 mmol/L (22.0-26.0); BG METHEMOGLOBIN 0.3 % (0.0-1.5); BG OXYGEN SATURATION 98.5 % (92.0-98.5); BG OXYHEMOGLOBIN 97.8 % (94.0-97.0); BG PH 7.445 (7.350-7.450); BG PO2 153.4 mmHg (75.0-100.0); BG PRESSURE SUPPORT 14; BG SAMPLE SITE A-LINE; BG TIDAL VOLUME(mL) 475 mL; BG TOTAL HEMOGLOBIN 8.6 g/dL (12.0-18.0); BG VENT MODE VENT - SIMV; BG VENT RATE 8 set
[2019-01-24 14:36] LABS: INR 1.2; PARTIAL THROMBOPLASTIN TIME 35.5 sec (23.4-31.0); PROTHROMBIN TIME 12.4 sec (9.6-11.0)
[2019-01-24 14:39] LABS: PLATELET ESTIMATE DECREASED
[2019-01-24] MEDS: ACETAMINOPHEN 650MG/20.3ML UDC NG PRN (15:09)
[2019-01-24 15:10] LABS: BG CARBOXYHEMOGLOBIN 0.9 % (0.5-1.5); BG FRACTION INSPIRED OXYGEN 65; BG METHEMOGLOBIN 0.4 % (0.0-1.5); BG OXYGEN SATURATION 60.5 % (92.0-98.5); BG OXYHEMOGLOBIN 59.7 % (94.0-97.0); BG PRESSURE SUPPORT 14; BG SAMPLE SITE OTHER; BG TIDAL VOLUME(mL) 475 mL; BG VENT MODE VENT - SIMV; BG VENT RATE 8 set
[2019-01-24 15:23] LABS: BG BASE EXCESS -2.3 mmol/L (-2.0-2.0); BG CARBOXYHEMOGLOBIN 0.5 % (0.5-1.5); BG DEOXYHEMOGLOBIN 1.5 % (0.0-5.0); BG FRACTION INSPIRED OXYGEN 60; BG HCO3 ACT 21.7 mmol/L (22.0-26.0); BG METHEMOGLOBIN 0.1 % (0.0-1.5); BG OXYGEN SATURATION 98.5 % (92.0-98.5); BG OXYHEMOGLOBIN 97.9 % (94.0-97.0); BG PCO2 33.7 mmHg (35.0-45.0); BG PH 7.427 (7.350-7.450); BG PO2 144.8 mmHg (75.0-100.0); BG PRESSURE SUPPORT 14; BG SAMPLE SITE A-LINE; BG TIDAL VOLUME(mL) 475 mL; BG TOTAL HEMOGLOBIN 8.2 g/dL (12.0-18.0); BG VENT MODE VENT - SIMV; BG VENT RATE 8 set
[2019-01-24] MEDS: DEXT 5%/0.45% NACL 1000ML 1,000 ML IV SCH (15:56)
[2019-01-24] MEDS: MILRINONE 20MG-DEXT 5% PREMIX 100 ML IV SCH ×2 (15:57→16:25)
[2019-01-24] MEDS: PROPOFOL 10MG/ML 100ML 100 ML IV PRN ×2 (16:09→22:42)
[2019-01-24] MEDS: MAGNESIUM HYDROXIDE 400MG/5ML 30ML UDC PO SCH ×3 (16:23→23:50)
[2019-01-24] MEDS: BIKTARVY PO SCH (16:24)
[2019-01-24] MEDS: CEFAZOLIN 1000MG PREMIX 50 ML IV SCH ×2 (16:24→23:50)
[2019-01-24] MEDS ORDERED: ALBUMIN HUMAN 12.5G/250ML (5%) IV NR (16:30)
[2019-01-24 16:31] LABS: HEMATOCRIT 24.9 % (36.0-48.0); HEMOGLOBIN 8.4 g/dL (12.0-16.0)
[2019-01-24] MEDS: DOCUSATE SODIUM 100MG CAPSULE PO SCH (16:46)
[2019-01-24] MEDS ORDERED: NON FORMULARY PATIENT HOME MED XX SCH (17:00)
[2019-01-24] MEDS ORDERED: COAGULATION FACTOR VIIA RECOMB 1MG VIAL IV NR (17:15)
[2019-01-24] MEDS ORDERED: COAGULATION FACTOR VIIA RECOMB 2MG VIAL IV NR (17:15)
[2019-01-24 17:29] LABS: HEMATOCRIT. 24.6 % (36.0-48.0); HEMOGLOBIN. 8.3 g/dL (12.0-16.0); MEAN CORPUSCULAR HEMOGLOBIN 27.8 pg (28.0-32.0); MEAN CORPUSCULAR VOLUME 82.8 fL (81.0-99.0); MEAN PLATELET VOLUME 8.1 fl (7.4-10.4); PLATELET 141 x1000/uL (130-400); RED BLOOD CELL COUNT 2.97 mill/uL (4.2-5.4); RED CELL DISTRIBUTION WIDTH 16.9 % (11.6-14.6)
[2019-01-24] MEDS: KCL 10MEQ/50ML PREMIX 100 ML IV PRN (18:02)
[2019-01-24 18:06] LABS: PLATELET ESTIMATE NORMAL
[2019-01-24] MEDS ORDERED: DESMOPRESSIN ACETATE 22 MCG in SODIUM CHLORIDE 0.9% 50 ML IV NR (18:30)
[2019-01-24] MEDS ORDERED: PROTAMINE SULFATE 25 MG in SODIUM CHLORIDE 0.9% 50 ML IV NR (18:30)
[2019-01-24] MEDS: IPRATROPIUM/ALBUTEROL 0.5-3(2.5)MG/3ML NEB HHN SCH (20:07)
[2019-01-24 20:22] LABS: BG BASE EXCESS 0.8 mmol/L (-2.0-2.0); BG CARBOXYHEMOGLOBIN 0.1 % (0.5-1.5); BG DEOXYHEMOGLOBIN 2.3 % (0.0-5.0); BG FRACTION INSPIRED OXYGEN 35; BG HCO3 ACT 24.5 mmol/L (22.0-26.0); BG METHEMOGLOBIN 0.3 % (0.0-1.5); BG OXYGEN SATURATION 97.7 % (92.0-98.5); BG OXYHEMOGLOBIN 97.3 % (94.0-97.0); BG PCO2 35.1 mmHg (35.0-45.0); BG PH 7.461 (7.350-7.450); BG PIP 25 cmH2O; BG PO2 116.4 mmHg (75.0-100.0); BG PRESSURE SUPPORT 12; BG SAMPLE SITE A-LINE; BG TIDAL VOLUME(mL) 500 mL; BG TOTAL HEMOGLOBIN 9.7 g/dL (12.0-18.0); BG VENT MODE VENT - SIMV; BG VENT RATE 8 set
[2019-01-24] MEDS ORDERED: DEXTROSE 50% WATER 50ML SYRINGE IV PRN ×2 (20:45)
[2019-01-24] MEDS: BLOOD SUGAR DIAGNOSTIC STRIP TEST SCH ×3 (21:00→23:06)
[2019-01-24] MEDS: SULFAMETHOXAZOLE/TRIMETHOPRIM 800/160MG TABLET PO SCH (22:14)
[2019-01-24] MEDS: MORPHINE SULFATE 2 MG/ML CPJ (NOT FOR IM USE) IV PRN (23:05)
[2019-01-25] VITALS (50 sets, daily range): BP systolic 89–163; BP diastolic 45–121
[2019-01-25 00:26] LABS: HEMATOCRIT. 26.1 % (36.0-48.0); HEMOGLOBIN. 8.8 g/dL (12.0-16.0); MEAN CORPUSCULAR HEMOGLOBIN 27.8 pg (28.0-32.0); MEAN CORPUSCULAR VOLUME 82.7 fL (81.0-99.0); MEAN PLATELET VOLUME 8.8 fl (7.4-10.4); PLATELET 124 x1000/uL (130-400); RED BLOOD CELL COUNT 3.16 mill/uL (4.2-5.4); RED CELL DISTRIBUTION WIDTH 16.8 % (11.6-14.6)
[2019-01-25 00:36] LABS: BG BASE EXCESS -0.1 mmol/L (-2.0-2.0); BG CARBOXYHEMOGLOBIN 0.3 % (0.5-1.5); BG DEOXYHEMOGLOBIN 2.2 % (0.0-5.0); BG FRACTION INSPIRED OXYGEN 40; BG HCO3 ACT 23.8 mmol/L (22.0-26.0); BG METHEMOGLOBIN 0.2 % (0.0-1.5); BG OXYGEN SATURATION 97.8 % (92.0-98.5); BG OXYHEMOGLOBIN 97.3 % (94.0-97.0); BG PCO2 35.4 mmHg (35.0-45.0); BG PH 7.445 (7.350-7.450); BG PO2 115.5 mmHg (75.0-100.0); BG PRESSURE SUPPORT 12; BG SAMPLE SITE A-LINE; BG TIDAL VOLUME(mL) 445 mL; BG TOTAL HEMOGLOBIN 9.6 g/dL (12.0-18.0); BG VENT MODE VENT - CPAP
[2019-01-25 00:37] LABS: PHOSPHORUS 3.7 mg/dL (2.5-4.9)
[2019-01-25] MEDS: BLOOD SUGAR DIAGNOSTIC STRIP TEST SCH ×24 (01:26→23:00)
[2019-01-25] MEDS: MORPHINE SULFATE 2 MG/ML CPJ (NOT FOR IM USE) IV PRN ×4 (01:29→16:11)
[2019-01-25] MEDS: MAGNESIUM 1 G PREMIX 100 ML IV PRN (02:08)
[2019-01-25 02:39] LABS: NUCLEATED RED BLOOD CELLS 1 /100 WBC
[2019-01-25 02:41] LABS: PLATELET ESTIMATE SLIGHTLY DECREASED
[2019-01-25] MEDS: MAGNESIUM 2 G PREMIX 50 ML IV PRN (03:29)
[2019-01-25] MEDS: MAGNESIUM HYDROXIDE 400MG/5ML 30ML UDC PO SCH ×4 (03:55→16:11)
[2019-01-25] MEDS: IPRATROPIUM/ALBUTEROL 0.5-3(2.5)MG/3ML NEB HHN SCH ×5 (04:09→21:02)
[2019-01-25 05:33] LABS: HEMATOCRIT. 28.9 % (36.0-48.0); HEMOGLOBIN. 9.7 g/dL (12.0-16.0); MEAN CORPUSCULAR HEMOGLOBIN 28.2 pg (28.0-32.0); MEAN PLATELET VOLUME 9.2 fl (7.4-10.4); PLATELET 108 x1000/uL (130-400); RED BLOOD CELL COUNT 3.44 mill/uL (4.2-5.4); RED CELL DISTRIBUTION WIDTH 16.7 % (11.6-14.6)
[2019-01-25 05:41] LABS: PHOSPHORUS 4.5 mg/dL (2.5-4.9)
[2019-01-25] MEDS: KCL 10MEQ/50ML PREMIX 100 ML IV PRN (06:20)
[2019-01-25] MEDS: OXYCODONE HCL/ACETAMINOPHEN 5/325MG TABLET PO PRN ×4 (06:41→18:57)
[2019-01-25] MEDS: DOCUSATE SODIUM 100MG CAPSULE PO SCH ×2 (08:17→16:11)
[2019-01-25] MEDS: CEFAZOLIN 1000MG PREMIX 50 ML IV SCH ×2 (08:17→16:10)
[2019-01-25] MEDS: FAMOTIDINE 20MG/2ML VIAL IV SCH (08:17)
[2019-01-25] MEDS: BIKTARVY PO SCH (08:18)
[2019-01-25] MEDS: INSULIN REGULAR (DRIP) 100 UNITS in SODIUM CHLORIDE 0.9% 99 ML IV SCH (08:18)
[2019-01-25 09:32] LABS: PLATELET ESTIMATE DECREASED
[2019-01-25] MEDS: DEXT 5%/0.45% NACL 1000ML 1,000 ML IV SCH (10:09)
[2019-01-25] MEDS ORDERED: FUROSEMIDE 40MG/4ML VIAL IVP NR (18:30)
[2019-01-25] MEDS: METOPROLOL TARTRATE 50MG TABLET PO SCH (21:13)
[2019-01-25] MEDS ORDERED: LORAZEPAM 2MG/ML CPJ IV PRN (22:45)
[2019-01-26] VITALS (45 sets, daily range): BP systolic 85–169; BP diastolic 48–152
[2019-01-26] MEDS: IPRATROPIUM/ALBUTEROL 0.5-3(2.5)MG/3ML NEB HHN SCH ×6 (00:24→20:41)
[2019-01-26] MEDS: BLOOD SUGAR DIAGNOSTIC STRIP TEST SCH ×24 (01:00→23:00)
[2019-01-26 05:34] LABS: PHOSPHORUS 5.9 mg/dL (2.5-4.9)
[2019-01-26] MEDS: DEXT 5%/0.45% NACL 1000ML 1,000 ML IV SCH (05:36)
[2019-01-26 05:37] LABS: HEMATOCRIT. 24.4 % (36.0-48.0); HEMOGLOBIN. 8.1 g/dL (12.0-16.0); MEAN CORPUSCULAR HEMOGLOBIN 28.3 pg (28.0-32.0); MEAN CORPUSCULAR VOLUME 85.4 fL (81.0-99.0); MEAN PLATELET VOLUME 9.8 fl (7.4-10.4); PLATELET 74 x1000/uL (130-400); RED BLOOD CELL COUNT 2.86 mill/uL (4.2-5.4); RED CELL DISTRIBUTION WIDTH 16.6 % (11.6-14.6)
[2019-01-26] MEDS: INSULIN REGULAR (DRIP) 100 UNITS in SODIUM CHLORIDE 0.9% 99 ML IV SCH (05:37)
[2019-01-26 07:28] LABS: PLATELET ESTIMATE DECREASED
[2019-01-26] MEDS: MORPHINE SULFATE 2 MG/ML CPJ (NOT FOR IM USE) IV PRN (07:42)
[2019-01-26] MEDS: OXYCODONE HCL/ACETAMINOPHEN 5/325MG TABLET PO PRN ×2 (07:50→18:51)
[2019-01-26] MEDS ORDERED: FUROSEMIDE 20MG/2ML VIAL IVP NR (08:45)
[2019-01-26] MEDS: ASPIRIN 81MG EC TABLET PO SCH (09:00)
[2019-01-26] MEDS: BIKTARVY PO SCH (09:53)
[2019-01-26] MEDS: FAMOTIDINE 20MG/2ML VIAL IV SCH (09:54)
[2019-01-26] MEDS: METOPROLOL TARTRATE 50MG TABLET PO SCH (09:54)
[2019-01-26] MEDS: DOCUSATE SODIUM 100MG CAPSULE PO SCH ×2 (09:56→18:34)
[2019-01-26] MEDS ORDERED: NON FORMULARY PATIENT HOME MED XX SCH (13:15)
[2019-01-26] MEDS ORDERED: BUMETANIDE IV SCH (13:30)
[2019-01-26] MEDS: BUMETANIDE IV SCH (13:45)
[2019-01-26] MEDS: ACETAMINOPHEN 650MG/20.3ML UDC NG PRN (14:14)
[2019-01-26 16:49] LABS: BASOPHILS % 0.3 % (0.0-2.0); EOSINOPHILS % 1.6 % (0.0-5.0); HEMATOCRIT. 26.7 % (36.0-48.0); HEMOGLOBIN. 8.8 g/dL (12.0-16.0); LYMPHOCYTES % 8.4 % (20.0-50.0); MEAN CORPUSCULAR HEMOGLOBIN 28.1 pg (28.0-32.0); MEAN CORPUSCULAR VOLUME 85.7 fL (81.0-99.0); MEAN PLATELET VOLUME 10.1 fl (7.4-10.4); MONOCYTES % 6.7 % (2.0-8.0); PLATELET 91 x1000/uL (130-400); RED BLOOD CELL COUNT 3.12 mill/uL (4.2-5.4); RED CELL DISTRIBUTION WIDTH 16.9 % (11.6-14.6)
[2019-01-26 16:53] LABS: CHLORIDE 100 mEq/L (98-107)
[2019-01-26] MEDS ORDERED: SODIUM POLYSTYRENE SULFONATE 15 G/60 ML BOT PO NR (18:30)
[2019-01-26] MEDS: METOPROLOL TARTRATE 25MG TABLET PO SCH (21:17)
[2019-01-27] VITALS (91 sets, daily range): BP systolic 82–155; BP diastolic 43–116
[2019-01-27] MEDS: IPRATROPIUM/ALBUTEROL 0.5-3(2.5)MG/3ML NEB HHN SCH ×6 (00:13→21:02)
[2019-01-27] MEDS: DOPAMINE 400MG/250ML PREMIX 250 ML IV SCH ×3 (00:31→16:14)
[2019-01-27] MEDS: BLOOD SUGAR DIAGNOSTIC STRIP TEST SCH ×23 (00:32→21:00)
[2019-01-27] MEDS: OXYCODONE HCL/ACETAMINOPHEN 5/325MG TABLET PO PRN ×4 (00:41→22:44)
[2019-01-27] MEDS: DEXT 5%/0.45% NACL 1000ML 1,000 ML IV SCH (02:09)
[2019-01-27] MEDS: INSULIN REGULAR (DRIP) 100 UNITS in SODIUM CHLORIDE 0.9% 99 ML IV SCH (04:29)
[2019-01-27 06:13] LABS: PHOSPHORUS 4.5 mg/dL (2.5-4.9)
[2019-01-27 06:15] LABS: BASOPHILS % 0.2 % (0.0-2.0); HEMATOCRIT. 27.9 % (36.0-48.0); HEMOGLOBIN. 9.3 g/dL (12.0-16.0); LYMPHOCYTES % 7.7 % (20.0-50.0); MEAN CORPUSCULAR HEMOGLOBIN 28.2 pg (28.0-32.0); MEAN PLATELET VOLUME 9.9 fl (7.4-10.4); MONOCYTES % 6.9 % (2.0-8.0); NEUTROPHILS % 83.2 % (40.0-76.0); PLATELET 118 x1000/uL (130-400); RED BLOOD CELL COUNT 3.28 mill/uL (4.2-5.4); RED CELL DISTRIBUTION WIDTH 16.7 % (11.6-14.6)
[2019-01-27] MEDS: KCL 10MEQ/50ML PREMIX 100 ML IV PRN (08:27)
[2019-01-27] MEDS: FAMOTIDINE 20MG/2ML VIAL IV SCH (08:38)
[2019-01-27] MEDS: BIKTARVY PO SCH (08:38)
[2019-01-27] MEDS: DOCUSATE SODIUM 100MG CAPSULE PO SCH ×2 (08:38→17:15)
[2019-01-27] MEDS: ASPIRIN 81MG EC TABLET PO SCH (08:39)
[2019-01-27] MEDS: METOPROLOL TARTRATE 25MG TABLET PO SCH ×2 (08:39→21:00)
[2019-01-27] MEDS: MAGNESIUM SULFATE 3 GM in DEXT 5% WATER 100 ML IV PRN (08:40)
[2019-01-27] MEDS: BUMETANIDE IV SCH (09:40)
[2019-01-27] MEDS: POLYETHYLENE GLYCOL 3350 (17GM) 1 DOSE PACK PO SCH (12:45)
[2019-01-27] MEDS ORDERED: DEXTROSE 50% WATER 50ML SYRINGE IV PRN (17:00)
[2019-01-27] MEDS: INSULIN GLARGINE UD 100 UNITS/ML SYR SUBCUT SCH (17:43)
[2019-01-27] MEDS: INSULIN LISPRO 100 UNITS/ML SUBCUT SCH ×2 (18:09→21:00)
[2019-01-27 19:31] LABS: HEMATOCRIT. 26.3 % (36.0-48.0); HEMOGLOBIN. 8.8 g/dL (12.0-16.0); MEAN CORPUSCULAR HEMOGLOBIN 28.4 pg (28.0-32.0); MEAN CORPUSCULAR VOLUME 84.6 fL (81.0-99.0); MEAN PLATELET VOLUME 8.9 fl (7.4-10.4); PLATELET 136 x1000/uL (130-400); RED BLOOD CELL COUNT 3.11 mill/uL (4.2-5.4); RED CELL DISTRIBUTION WIDTH 16.8 % (11.6-14.6)
[2019-01-27 21:10] LABS: PLATELET ESTIMATE NORMAL
[2019-01-27] MEDS: DIPHENHYDRAMINE 50MG/ML VIAL IV NR ×2 (22:43→22:47)
[2019-01-28] VITALS (105 sets, daily range): BP systolic 75–157; BP diastolic 24–115
[2019-01-28] MEDS: IPRATROPIUM/ALBUTEROL 0.5-3(2.5)MG/3ML NEB HHN SCH ×6 (00:37→21:02)
[2019-01-28] MEDS: DOPAMINE 400MG/250ML PREMIX 250 ML IV SCH ×3 (00:44→15:50)
[2019-01-28] MEDS: DIPHENHYDRAMINE 25MG CAPSULE PO PRN ×2 (01:58→16:10)
[2019-01-28 04:43] LABS: BASOPHILS % 0.3 % (0.0-2.0); EOSINOPHILS % 6.5 % (0.0-5.0); HEMATOCRIT. 26.3 % (36.0-48.0); HEMOGLOBIN. 8.7 g/dL (12.0-16.0); LYMPHOCYTES % 10.5 % (20.0-50.0); MEAN CORPUSCULAR HEMOGLOBIN 28.2 pg (28.0-32.0); MEAN CORPUSCULAR VOLUME 85.5 fL (81.0-99.0); MEAN PLATELET VOLUME 9.7 fl (7.4-10.4); MONOCYTES % 7.3 % (2.0-8.0); NEUTROPHILS % 75.4 % (40.0-76.0); PLATELET 141 x1000/uL (130-400); RED BLOOD CELL COUNT 3.08 mill/uL (4.2-5.4); RED CELL DISTRIBUTION WIDTH 16.8 % (11.6-14.6)
[2019-01-28 04:46] LABS: CHLORIDE 94 mEq/L (98-107)
[2019-01-28 04:51] LABS: PHOSPHORUS 3.7 mg/dL (2.5-4.9)
[2019-01-28] MEDS: BLOOD SUGAR DIAGNOSTIC STRIP TEST SCH ×4 (07:50→21:48)
[2019-01-28] MEDS: INSULIN LISPRO 100 UNITS/ML SUBCUT SCH ×4 (08:05→21:00)
[2019-01-28] MEDS: POLYETHYLENE GLYCOL 3350 (17GM) 1 DOSE PACK PO SCH (09:00)
[2019-01-28] MEDS: METOPROLOL TARTRATE 25MG TABLET PO SCH (09:33)
[2019-01-28] MEDS: DOCUSATE SODIUM 100MG CAPSULE PO SCH ×2 (09:33→17:01)
[2019-01-28] MEDS: ASPIRIN 81MG EC TABLET PO SCH (09:33)
[2019-01-28] MEDS: FAMOTIDINE 20MG/2ML VIAL IV SCH (09:33)
[2019-01-28] MEDS: BIKTARVY PO SCH (09:34)
[2019-01-28] MEDS: KCL 10MEQ/50ML PREMIX 100 ML IV PRN (09:36)
[2019-01-28] MEDS: MAGNESIUM 2 G PREMIX 50 ML IV PRN (09:51)
[2019-01-28] MEDS: INSULIN GLARGINE UD 100 UNITS/ML SYR SUBCUT SCH ×2 (11:26→21:55)
[2019-01-28] MEDS ORDERED: ACETAMINOPHEN 325MG TABLET PO NR (12:15)
[2019-01-28] MEDS: PHENYLEPHRINE 20 MG in DEXT 5% WATER 248 ML IV PRN ×3 (13:17→20:09)
[2019-01-28] MEDS: OXYCODONE HCL/ACETAMINOPHEN 5/325MG TABLET PO PRN (17:02)
[2019-01-28 19:08] LABS: CLARITY URINE CLOUDY (CLEAR); COLOR URINE ORANGE (YELLOW); KETONES URINE NEGATIVE (NEGATIVE); LEUKOCYTE ESTERASE URINE 2+ (NEGATIVE); NITRITE URINE NEGATIVE (NEGATIVE); OCCULT BLOOD URINE 3+ (NEGATIVE); PROTEIN URINE 1+ (NEGATIVE); SPECIFIC GRAVITY URINE 1.011 (1.005-1.030)
[2019-01-28] MEDS ORDERED: PHENYLEPHRINE 40 MG in DEXT 5% WATER 496 ML IV PRN (22:34)
[2019-01-28] MEDS: PHENYLEPHRINE 80 MG in DEXT 5% WATER 492 ML IV PRN ×2 (23:53→23:58)
[2019-01-29] VITALS (89 sets, daily range): BP systolic 72–166; BP diastolic 30–100
[2019-01-29] MEDS: IPRATROPIUM/ALBUTEROL 0.5-3(2.5)MG/3ML NEB HHN SCH ×6 (00:37→21:10)
[2019-01-29 05:59] LABS: BASOPHILS % 0.4 % (0.0-2.0); EOSINOPHILS % 6.9 % (0.0-5.0); HEMOGLOBIN. 9.1 g/dL (12.0-16.0); LYMPHOCYTES % 13.2 % (20.0-50.0); MEAN CORPUSCULAR HEMOGLOBIN 28.9 pg (28.0-32.0); MEAN CORPUSCULAR VOLUME 85.4 fL (81.0-99.0); MEAN PLATELET VOLUME 9.1 fl (7.4-10.4); MONOCYTES % 11.8 % (2.0-8.0); NEUTROPHILS % 67.7 % (40.0-76.0); PLATELET 203 x1000/uL (130-400); RED BLOOD CELL COUNT 3.16 mill/uL (4.2-5.4); RED CELL DISTRIBUTION WIDTH 16.1 % (11.6-14.6)
[2019-01-29 06:08] LABS: CHLORIDE 97 mEq/L (98-107)
[2019-01-29 06:18] LABS: PHOSPHORUS 2.5 mg/dL (2.5-4.9)
[2019-01-29] MEDS: INSULIN LISPRO 100 UNITS/ML SUBCUT SCH ×4 (07:55→20:42)
[2019-01-29] MEDS: BLOOD SUGAR DIAGNOSTIC STRIP TEST SCH ×4 (07:55→20:42)
[2019-01-29] MEDS: KCL 10MEQ/50ML PREMIX 150 ML IV PRN ×2 (08:08→10:44)
[2019-01-29] MEDS: POLYETHYLENE GLYCOL 3350 (17GM) 1 DOSE PACK PO SCH (08:08)
[2019-01-29] MEDS: ASPIRIN 81MG EC TABLET PO SCH (08:09)
[2019-01-29] MEDS: OXYCODONE HCL/ACETAMINOPHEN 5/325MG TABLET PO PRN ×2 (08:10→23:26)
[2019-01-29] MEDS: FAMOTIDINE 20MG/2ML VIAL IV SCH (08:10)
[2019-01-29] MEDS: DOCUSATE SODIUM 100MG CAPSULE PO SCH ×2 (08:10→17:31)
[2019-01-29] MEDS: MAGNESIUM 1 G PREMIX 100 ML IV PRN ×3 (08:36→10:13)
[2019-01-29] MEDS: KCL 10MEQ/50ML PREMIX 100 ML IV PRN (09:31)
[2019-01-29] MEDS: BIKTARVY PO SCH (09:43)
[2019-01-29] MEDS: INSULIN GLARGINE UD 100 UNITS/ML SYR SUBCUT SCH ×2 (09:45→21:50)
[2019-01-29] MEDS: PHENYLEPHRINE 80 MG in DEXT 5% WATER 492 ML IV PRN (14:43)
[2019-01-29] MEDS: MIDODRINE HCL 5MG TABLET PO SCH ×2 (17:31→23:25)
[2019-01-29] MEDS: ACETAMINOPHEN 650MG/20.3ML UDC NG PRN (19:38)
[2019-01-30] VITALS (59 sets, daily range): BP systolic 82–150; BP diastolic 50–114
[2019-01-30] MEDS: CEFEPIME 1,000 MG in DEXTROSE 5% WATER 50 ML IV SCH ×2 (00:23→08:50)
[2019-01-30] MEDS: IPRATROPIUM/ALBUTEROL 0.5-3(2.5)MG/3ML NEB HHN SCH ×6 (00:45→20:20)
[2019-01-30 05:42] LABS: CHLORIDE 100 mEq/L (98-107)
[2019-01-30 06:13] LABS: BASOPHILS % 0.5 % (0.0-2.0); EOSINOPHILS % 7.6 % (0.0-5.0); HEMATOCRIT. 24.2 % (36.0-48.0); HEMOGLOBIN. 8.3 g/dL (12.0-16.0); MEAN CORPUSCULAR HEMOGLOBIN 29.3 pg (28.0-32.0); MEAN CORPUSCULAR VOLUME 85.8 fL (81.0-99.0); MEAN PLATELET VOLUME 8.9 fl (7.4-10.4); MONOCYTES % 11.5 % (2.0-8.0); NEUTROPHILS % 65.4 % (40.0-76.0); PLATELET 238 x1000/uL (130-400); RED BLOOD CELL COUNT 2.82 mill/uL (4.2-5.4); RED CELL DISTRIBUTION WIDTH 16.7 % (11.6-14.6)
[2019-01-30] MEDS: MAGNESIUM SULFATE 3 GM in DEXT 5% WATER 100 ML IV PRN (07:18)
[2019-01-30] MEDS: OXYCODONE HCL/ACETAMINOPHEN 5/325MG TABLET PO PRN ×3 (07:20→22:47)
[2019-01-30] MEDS: MIDODRINE HCL 5MG TABLET PO SCH ×2 (07:27→19:40)
[2019-01-30] MEDS: INSULIN LISPRO 100 UNITS/ML SUBCUT SCH ×4 (07:51→21:00)
[2019-01-30] MEDS: BLOOD SUGAR DIAGNOSTIC STRIP TEST SCH ×4 (07:51→21:24)
[2019-01-30] MEDS ORDERED: POTASSIUM CHLORIDE INJ 40 MEQ in DEXT 5% WATER 250 ML IV NR (08:00)
[2019-01-30] MEDS: FAMOTIDINE 20MG/2ML VIAL IV SCH (08:50)
[2019-01-30] MEDS: DOCUSATE SODIUM 100MG CAPSULE PO SCH ×2 (08:50→17:45)
[2019-01-30] MEDS: ASPIRIN 81MG EC TABLET PO SCH (08:50)
[2019-01-30] MEDS: POLYETHYLENE GLYCOL 3350 (17GM) 1 DOSE PACK PO SCH (08:51)
[2019-01-30] MEDS: BIKTARVY PO SCH (09:19)
[2019-01-30] MEDS: INSULIN GLARGINE UD 100 UNITS/ML SYR SUBCUT SCH ×2 (09:20→21:32)
[2019-01-30] MEDS ORDERED: IRON SUCROSE COMPLEX 100 MG/5 ML ML IV SCH (17:00)
[2019-01-30] MEDS: CEFTRIAXONE 1 G PREMIX 50 ML IV SCH (19:54)
[2019-01-30] MEDS ORDERED: EPOETIN ALFA 4000UNITS/ML VIAL SUBCUT SCH (21:00)
[2019-01-31] VITALS (11 sets, daily range): BP systolic 2–118; BP diastolic 45–85
[2019-01-31] MEDS: MIDODRINE HCL 5MG TABLET PO SCH ×3 (00:17→17:10)
[2019-01-31] MEDS: IPRATROPIUM/ALBUTEROL 0.5-3(2.5)MG/3ML NEB HHN SCH ×5 (00:22→16:36)
[2019-01-31] MEDS: BLOOD SUGAR DIAGNOSTIC STRIP TEST SCH ×3 (06:15→17:10)
[2019-01-31 07:34] LABS: BASOPHILS % 0.4 % (0.0-2.0); EOSINOPHILS % 8.3 % (0.0-5.0); HEMATOCRIT. 24.9 % (36.0-48.0); HEMOGLOBIN. 8.4 g/dL (12.0-16.0); LYMPHOCYTES % 9.4 % (20.0-50.0); MEAN CORPUSCULAR HEMOGLOBIN 29.4 pg (28.0-32.0); MEAN CORPUSCULAR VOLUME 86.7 fL (81.0-99.0); MEAN PLATELET VOLUME 8.5 fl (7.4-10.4); MONOCYTES % 8.8 % (2.0-8.0); NEUTROPHILS % 73.1 % (40.0-76.0); PLATELET 264 x1000/uL (130-400); RED BLOOD CELL COUNT 2.87 mill/uL (4.2-5.4); RED CELL DISTRIBUTION WIDTH 16.7 % (11.6-14.6)
[2019-01-31 07:39] LABS: CHLORIDE 100 mEq/L (98-107)
[2019-01-31 07:49] LABS: PHOSPHORUS 2.7 mg/dL (2.5-4.9)
[2019-01-31] MEDS: BIKTARVY PO SCH (08:53)
[2019-01-31] MEDS: POLYETHYLENE GLYCOL 3350 (17GM) 1 DOSE PACK PO SCH (08:54)
[2019-01-31] MEDS: DOCUSATE SODIUM 100MG CAPSULE PO SCH (08:54)
[2019-01-31] MEDS: ASPIRIN 81MG EC TABLET PO SCH (08:54)
[2019-01-31] MEDS ORDERED: FAMOTIDINE 20MG TABLET PO SCH (09:00)
[2019-01-31] MEDS: OXYCODONE HCL/ACETAMINOPHEN 5/325MG TABLET PO PRN (09:11)
[2019-01-31] MEDS: INSULIN GLARGINE UD 100 UNITS/ML SYR SUBCUT SCH (09:57)
[2019-01-31] MEDS: GUAIFENESIN-DM 200MG-20MG/10ML UDC PO PRN ×2 (12:22→17:09)
[2019-01-31] MEDS: CEFTRIAXONE 1 G PREMIX 50 ML IV SCH (15:40)
== END 2019-01-31 17:50 | disposition home or self-care (01) | DRG 163 ==
LOC: 6WST 22:25 → 3WST 01-23 18:18 → CVICU 01-24 07:41 → 3WST 01-30 16:14
PROVIDERS: ADMIT Internal Medicine; ATTEND Internal Medicine
PROC: 02RG08Z Replacement of Mitral Valve with Zooplastic Tissue, Open Approach (ICD-10-PCS; principal; 2019-01-24)
PROC: B246ZZ4 Ultrasonography of Right and Left Heart, Transesophageal (ICD-10-PCS; 2019-01-24)
PROC: 0W9930Z Drainage of Right Pleural Cavity with Drainage Device, Percutaneous Approach (ICD-10-PCS; 2019-01-24)
PROC: 5A1221Z Performance of Cardiac Output, Continuous (ICD-10-PCS; 2019-01-24)
PROC: 5A1935Z Respiratory Ventilation, Less than 24 Consecutive Hours (ICD-10-PCS; 2019-01-24)
PROC: 0BH17EZ Insertion of Endotracheal Airway into Trachea, Via Natural or Artificial Opening (ICD-10-PCS; 2019-01-24)
DX: I08.1 Rheumatic disorders of both mitral and tricuspid valves (principal); J96.90 Respiratory failure, unspecified, unspecified whether with hypoxia or hypercapnia; N17.9 Acute kidney failure, unspecified; E46 Unspecified protein-calorie malnutrition; B20 Human immunodeficiency virus [HIV] disease; D69.6 Thrombocytopenia, unspecified; E87.1 Hypo-osmolality and hyponatremia; I11.0 Hypertensive heart disease with heart failure; I50.20 Unspecified systolic (congestive) heart failure; I31.3 Pericardial effusion (noninflammatory); I27.20 Pulmonary hypertension, unspecified; E78.5 Hyperlipidemia, unspecified; D64.9 Anemia, unspecified; I44.0 Atrioventricular block, first degree; N39.0 Urinary tract infection, site not specified; R17 Unspecified jaundice; R73.9 Hyperglycemia, unspecified; R80.9 Proteinuria, unspecified; B96.89 Other specified bacterial agents as the cause of diseases classified elsewhere; Z86.61 Personal history of infections of the central nervous system; Z86.79 Personal history of other diseases of the circulatory system; Z86.14 Personal history of Methicillin resistant Staphylococcus aureus infection; Z79.899 Other long term (current) drug therapy
CPT/HCPCS: 36415; 36600; 71045; 75571; 76770; 80048; 80053; 80076; 81003; 82330; 82375; 82570; 82805; 82962; 83036; 83735; 84100; 84132; 84156; 84300; 84478; 85014; 85018; 85025; 85347; 85384; 85520; 86359; 86360; 86850; 86900; 86920; 86927; 87070; 87075; 87077; 87186; 88305; 88311; 90686; 93005; 93306; 93880; 94002; 94640; 97116; 97163; 97166; 97530; 97535; C1725; C1729; C1751; C1758; C1893; J0282; J0360; J0690; J0692; J0696; J0885; J1170; J1200; J1265; J1644; J1815; J1940; J2060; J2250; J2260; J2270; J2370; J2405; J2597; J2704; J2720; J2765; J3010; J3475; J3480; J3490; J7040; J7050; J7060; J7189; L3908; P9012; P9016; P9017; P9034; P9041; P9047; Q0163; Q9967

== ENCOUNTER 2021-01-15 19:36 | Emergency (ER) | payer MEDICAID ==
[~2021-01-15] VITALS: Ht 167.6 cm; Wt 64.0 kg
[~2021-01-15 19:36] MED LIST changes: +ALBU2.5V13 NEB; -ASPI-1158 PO; +ASPI-1406 PO; +BICT1TAB PO; -LISI2.5T47 MT; +LISI20TA31 PO
[2021-01-15] MEDS ORDERED: ALBU6.7H9 INH (20:28)
[2021-01-15] MEDS ORDERED: P20 MT (20:28)
[2021-01-15] MEDS ORDERED: PREDNISONE 20MG TABLET PO ONE (20:30)
[2021-01-15 21:19] VITALS: BP 144/90
== END 2021-01-15 21:25 | disposition home or self-care (01) ==
LOC: ER 19:36
DX: R06.89 Other abnormalities of breathing (principal); J45.901 Unspecified asthma with (acute) exacerbation; I11.0 Hypertensive heart disease with heart failure; I50.9 Heart failure, unspecified; Z79.899 Other long term (current) drug therapy
CPT/HCPCS: 93005; 99283; J7512